=== PATIENT | male | born 1965 | race Hispanic/Latino ===

== ENCOUNTER 2023-01-30 16:08 | Inpatient (IN) | payer OTHER ==
[~2023-01-30] VITALS: Ht 165.1 cm; Wt 81.6 kg
[2023-01-30 17:15] VITALS: BP 126/82; PULSE 89; RESP 18
[2023-01-30] MEDS ORDERED: ACETAMINOPHEN 325 MG TAB PO PRN ×3 (17:30→21:30)
[2023-01-30] MEDS ORDERED: MAGNESIUM HYDROXIDE 30 ML/UDCUP PO PRN (17:30)
[2023-01-30] MEDS ORDERED: ACETAMINOPHEN WITH CODEINE 1 TAB TAB PO PRN (17:30)
[2023-01-30] MEDS ORDERED: MAG/ALUM/SIMETH 30 ML UDCUP PO PRN (17:30)
[2023-01-30] MEDS ORDERED: ATOR20TA65 PO (17:51)
[2023-01-30] MEDS ORDERED: METF-446 PO (17:51)
[2023-01-30] MEDS ORDERED: LISI5TAB21 PO (17:51)
[2023-01-30] MEDS ORDERED: HYDROMORPHONE PCA 10 MG/50 ML 50 ML IV PRN (18:00)
[2023-01-30 18:08] LABS: BASOPHILS # (AUTO) 0.01 K/uL (0.00-0.20); BASOPHILS % (AUTO) 0.1 % (0.0-5.0); EOSINOPHILS # (AUTO) 0.01 K/uL (0.00-0.70); EOSINOPHILS % (AUTO) 0.1 % (0.0-8.0); HEMATOCRIT 40.4 % (42-54); IMMATURE GRANULOCYTE ABSOLUTE 0.06 K/uL (0-1); LYMPHOCYTES # (AUTO) 0.7 K/uL (1.0-4.8); MEAN CORPUSCULAR HGB CONC 33.7 g/dL (32.0-36.0); MEAN CORPUSCULAR VOLUME 89.2 fL (79-99); MONOCYTES # (AUTO) 0.3 K/uL (0.1-1.0); MONOCYTES % (AUTO) 3.1 % (3.0-13.0); NEUTROPHILS # (AUTO) 8.8 K/uL (1.8-7.7); NEUTROPHILS % (AUTO) 89.1 % (40.0-77.0); PLATELET COUNT (AUTO) 168 K/uL (130-400); RED BLOOD CELL COUNT(AUTO) 4.53 MIL/uL (4.50-6.20); RED CELL DISTRIBUTION WIDTH 13.2 % (11.0-15.5); WHITE BLOOD COUNT (AUTO) 9.8 K/uL (4.8-10.8)
[2023-01-30 18:17] LABS: CREATININE 1.3 mg/dL (0.5-1.5); POTASSIUM 4.6 mmol/L (3.5-5.1)
[2023-01-30 18:23] LABS: INR < 0.93 (0.85-1.15); PROTHROMBIN TIME 9.8 SEC (9.6-11.6)
[2023-01-30 18:24] LABS: PARTIAL THROMBOPLASTIN TIME 25.5 SEC (26.3-35.5)
[2023-01-30] MEDS ORDERED: PHARMACY COMMUNICATION MISC SCH (18:30)
[2023-01-30 19:25] VITALS: O2SAT 98
[2023-01-30 20:15] VITALS: BP 127/84; PULSE 86; RESP 16
[2023-01-30] MEDS: INSULIN HUMULIN R 100 UNIT/ML 3ML SQ SCH (20:51)
[2023-01-30] MEDS: LACTATED RINGERS IV SCH (20:52)
[2023-01-30] MEDS: POTASSIUM CHLORIDE IV SCH (20:52)
[2023-01-30] MEDS: ATORVASTATIN 20 MG TABLET PO SCH (20:53)
[2023-01-30] MEDS ORDERED: NON-FORMULARY MEDICATION 1 EACH (Metformin HCl 1,000 MG) PO SCH (21:00)
[2023-01-30] MEDS ORDERED: HYDRALAZINE 20MG/ML VIAL IV PRN (21:30)
[2023-01-30] MEDS ORDERED: ONDANSETRON 4MG INJ IV PRN (21:30)
[2023-01-30] MEDS ORDERED: MAGNESIUM 2GM PREMIX 50ML 50 ML IV PRN (22:00)
[2023-01-30] MEDS ORDERED: POTASSIUM CHLORIDE 10% ELIXIR 20 MEQ/15 ML UDCUP PO PRN (22:00)
[2023-01-30] MEDS ORDERED: POTASSIUM CHLORIDE 20MEQ/100ML 100 ML IV PRN (22:00)
[2023-01-30] MEDS ORDERED: KCL 20 MEQ ERTAB PO PRN (22:00)
[2023-01-31] VITALS (7 sets, daily range): BP systolic 110–141; BP diastolic 68–98; PULSE 64–81; RESP 16–20; O2SAT 99
[2023-01-31 04:16] LABS: BASOPHILS # (AUTO) 0.01 K/uL (0.00-0.20); BASOPHILS % (AUTO) 0.1 % (0.0-5.0); EOSINOPHILS # (AUTO) 0.01 K/uL (0.00-0.70); EOSINOPHILS % (AUTO) 0.1 % (0.0-8.0); HEMATOCRIT 42.7 % (42-54); LYMPHOCYTES # (AUTO) 0.9 K/uL (1.0-4.8); LYMPHOCYTES % (AUTO) 11.2 % (21.0-51.0); MEAN CORPUSCULAR HEMOGLOBIN 29.7 pg (27.0-33.0); MEAN CORPUSCULAR HGB CONC 32.8 g/dL (32.0-36.0); MEAN CORPUSCULAR VOLUME 90.5 fL (79-99); MONOCYTES # (AUTO) 0.4 K/uL (0.1-1.0); MONOCYTES % (AUTO) 5.3 % (3.0-13.0); NEUTROPHILS # (AUTO) 6.4 K/uL (1.8-7.7); PLATELET COUNT (AUTO) 158 K/uL (130-400); RED BLOOD CELL COUNT(AUTO) 4.72 MIL/uL (4.50-6.20); RED CELL DISTRIBUTION WIDTH 13.2 % (11.0-15.5); WHITE BLOOD COUNT (AUTO) 7.9 K/uL (4.8-10.8)
[2023-01-31 04:31] LABS: INR < 0.93 (0.85-1.15)
[2023-01-31 04:33] LABS: HEMOGLOBIN A1C 8.9 % (4.0-6.0)
[2023-01-31 04:48] LABS: MAGNESIUM 1.8 mg/dL (1.80-2.40); POTASSIUM 5.1 mmol/L (3.5-5.1)
[2023-01-31 06:09] LABS: ADD UA MICROSCOPIC YES; APPEARANCE,URINE CLEAR (CLEAR); BILIRUBIN,URINE NEGATIVE (NEGATIVE); COLOR,URINE LIGHT-YELLOW (YELLOW); GLUCOSE, URINE (UA) >=1000 mg/dL (NEGATIVE); KETONES,URINE NEGATIVE (NEGATIVE); LEUKOCYTE ESTERASE ,URINE NEGATIVE Leu/uL (NEGATIVE); NITRATE,URINE NEGATIVE (NEGATIVE); OCCULT BLOOD,URINE NEGATIVE (NEGATIVE); PROTEIN,URINE NEGATIVE (NEGATIVE); UROBILINOGEN,URINE 0.2 mg/dL (0.2-1.0)
[2023-01-31 06:18] LABS: BACTERIA,URINE None Seen /HPF (None Seen); SQUAMOUS EPITHELIAL CELL,UR Rare /HPF (0-2); WBC,URINE 0-1 /HPF (0-1)
[2023-01-31] MEDS: INSULIN HUMULIN R 100 UNIT/ML 3ML SQ SCH ×4 (06:36→20:17)
[2023-01-31] MEDS: FAMOTIDINE 20MG TAB PO SCH ×2 (08:43→20:20)
[2023-01-31] MEDS: ACETAMINOPHEN WITH CODEINE 1 TAB TAB PO PRN ×2 (08:44→20:20)
[2023-01-31] MEDS: METFORMIN HCL 500 MG TABLET PO SCH ×2 (08:44→18:03)
[2023-01-31] MEDS: LISINOPRIL 5 MG TABLET PO SCH (08:44)
[2023-01-31] MEDS: LACTATED RINGERS IV SCH (19:00)
[2023-01-31] MEDS: POTASSIUM CHLORIDE IV SCH (19:00)
[2023-01-31] MEDS: ATORVASTATIN 20 MG TABLET PO SCH (20:20)
[2023-01-31] MEDS ORDERED: TEMAZEPAM 15 MG CAPSULE PO PRN (22:30)
[2023-02-01] VITALS (28 sets, daily range): BP systolic 107–148; BP diastolic 65–96; PULSE 72–106; RESP 15–20; O2SAT 98–99
[2023-02-01] MEDS: INSULIN HUMULIN R 100 UNIT/ML 3ML SQ SCH ×4 (05:10→20:52)
[2023-02-01] MEDS ORDERED: MIDAZOLAM HCL 1 MG/ML 2ML VIAL ONE (07:06)
[2023-02-01] MEDS ORDERED: FENTANYL CITRATE PF 50 MCG/1 ML 2ML VIAL ONE (07:06)
[2023-02-01] MEDS ORDERED: ONDANSETRON 4MG INJ ONE (07:07)
[2023-02-01] MEDS ORDERED: PROPOFOL 10 MG/ML 20ML VIAL IV ONE (07:25)
[2023-02-01] MEDS ORDERED: 0.9%NACL 1000ML 1,000 ML IV ONE (07:57)
[2023-02-01] MEDS: FAMOTIDINE 20MG TAB PO SCH ×2 (10:11→20:56)
[2023-02-01] MEDS: LISINOPRIL 5 MG TABLET PO SCH (10:11)
[2023-02-01] MEDS: METFORMIN HCL 500 MG TABLET PO SCH ×2 (10:12→16:52)
[2023-02-01] MEDS: LACTATED RINGERS IV SCH (20:53)
[2023-02-01] MEDS: POTASSIUM CHLORIDE IV SCH (20:53)
[2023-02-01] MEDS: ATORVASTATIN 20 MG TABLET PO SCH (20:56)
[2023-02-02] VITALS (7 sets, daily range): BP systolic 92–131; BP diastolic 62–85; PULSE 82–96; RESP 16–19; O2SAT 95–99
[2023-02-02 05:08] LABS: BASOPHILS # (AUTO) 0.03 K/uL (0.00-0.20); BASOPHILS % (AUTO) 0.4 % (0.0-5.0); EOSINOPHILS # (AUTO) 0.04 K/uL (0.00-0.70); EOSINOPHILS % (AUTO) 0.5 % (0.0-8.0); HEMATOCRIT 45.4 % (42-54); IMMATURE GRANULOCYTE ABSOLUTE 0.06 K/uL (0-1); LYMPHOCYTES # (AUTO) 1.2 K/uL (1.0-4.8); LYMPHOCYTES % (AUTO) 15.8 % (21.0-51.0); MEAN CORPUSCULAR HEMOGLOBIN 29.3 pg (27.0-33.0); MEAN CORPUSCULAR VOLUME 88.7 fL (79-99); MONOCYTES # (AUTO) 0.5 K/uL (0.1-1.0); MONOCYTES % (AUTO) 5.9 % (3.0-13.0); NEUTROPHILS % (AUTO) 76.6 % (40.0-77.0); PLATELET COUNT (AUTO) 146 K/uL (130-400); RED BLOOD CELL COUNT(AUTO) 5.12 MIL/uL (4.50-6.20); RED CELL DISTRIBUTION WIDTH 13.7 % (11.0-15.5); WHITE BLOOD COUNT (AUTO) 7.8 K/uL (4.8-10.8)
[2023-02-02 05:15] LABS: CREATININE 1.3 mg/dL (0.5-1.5); POTASSIUM 4.7 mmol/L (3.5-5.1)
[2023-02-02] MEDS: INSULIN HUMULIN R 100 UNIT/ML 3ML SQ SCH ×4 (06:56→19:34)
[2023-02-02] MEDS: FAMOTIDINE 20MG TAB PO SCH ×2 (08:09→19:34)
[2023-02-02] MEDS: METFORMIN HCL 500 MG TABLET PO SCH ×2 (08:09→16:16)
[2023-02-02] MEDS: LISINOPRIL 5 MG TABLET PO SCH (08:09)
[2023-02-02] MEDS: ACETAMINOPHEN WITH CODEINE 1 TAB TAB PO PRN (08:21)
[2023-02-02] MEDS: POTASSIUM CHLORIDE IV SCH (18:39)
[2023-02-02] MEDS: LACTATED RINGERS IV SCH (18:39)
[2023-02-02] MEDS: ATORVASTATIN 20 MG TABLET PO SCH (19:34)
[2023-02-03 01:00] VITALS: BP 109/77; PULSE 80; RESP 18
[2023-02-03 03:32] LABS: BASOPHILS # (AUTO) 0.02 K/uL (0.00-0.20); BASOPHILS % (AUTO) 0.3 % (0.0-5.0); EOSINOPHILS # (AUTO) 0.07 K/uL (0.00-0.70); EOSINOPHILS % (AUTO) 1.1 % (0.0-8.0); IMMATURE GRANULOCYTE ABSOLUTE 0.04 K/uL (0-1); LYMPHOCYTES % (AUTO) 15.3 % (21.0-51.0); MEAN CORPUSCULAR HEMOGLOBIN 29.9 pg (27.0-33.0); MEAN CORPUSCULAR HGB CONC 34.3 g/dL (32.0-36.0); MEAN CORPUSCULAR VOLUME 87.3 fL (79-99); MONOCYTES # (AUTO) 0.4 K/uL (0.1-1.0); MONOCYTES % (AUTO) 5.9 % (3.0-13.0); NEUTROPHILS # (AUTO) 4.8 K/uL (1.8-7.7); NEUTROPHILS % (AUTO) 76.8 % (40.0-77.0); PLATELET COUNT (AUTO) 125 K/uL (130-400); RED BLOOD CELL COUNT(AUTO) 4.81 MIL/uL (4.50-6.20); RED CELL DISTRIBUTION WIDTH 13.2 % (11.0-15.5); WHITE BLOOD COUNT (AUTO) 6.3 K/uL (4.8-10.8)
[2023-02-03 03:41] LABS: CREATININE 1.3 mg/dL (0.5-1.5); POTASSIUM 4.8 mmol/L (3.5-5.1)
[2023-02-03 04:52] VITALS: BP 120/78; PULSE 86; RESP 19
[2023-02-03] MEDS: INSULIN HUMULIN R 100 UNIT/ML 3ML SQ SCH ×2 (05:42→11:30)
[2023-02-03 07:00] VITALS: BP 119/74; PULSE 95; RESP 16
[2023-02-03] MEDS: FAMOTIDINE 20MG TAB PO SCH (07:57)
[2023-02-03] MEDS: LISINOPRIL 5 MG TABLET PO SCH (07:57)
[2023-02-03] MEDS: METFORMIN HCL 500 MG TABLET PO SCH (07:57)
[2023-02-03 11:50] VITALS: BP 113/69; PULSE 84; RESP 18
== END 2023-02-03 12:30 | disposition home health service (06) | DRG 563 ==
LOC: EDH 16:08 → DIRECT 16:09 → 4CH 17:15
PROVIDERS: ADMIT Orthopaedic Surgery; ATTEND Orthopaedic Surgery
PROC: 0SSDXZZ Reposition Left Knee Joint, External Approach (ICD-10-PCS; principal; 2023-02-01 07:00)
DX: M23.8X2 Other internal derangements of left knee (principal); T84.84XA Pain due to internal orthopedic prosthetic devices, implants and grafts, initial encounter; E11.9 Type 2 diabetes mellitus without complications; I10 Essential (primary) hypertension; E78.5 Hyperlipidemia, unspecified; Y79.2 Prosthetic and other implants, materials and accessory orthopedic devices associated with adverse incidents; Z85.528 Personal history of other malignant neoplasm of kidney; Z90.5 Acquired absence of kidney; Y92.89 Other specified places as the place of occurrence of the external cause; Z79.84 Long term (current) use of oral hypoglycemic drugs
CPT/HCPCS: 36415; 71045; 73560; 80048; 81001; 82948; 83036; 83735; 84100; 85025; 85610; 85730; 86850; 86900; 86901; 93005; G0378; J1170; J1815; J2250; J2405; J2704; J3010; J3475; J3480; J7030; J7120; A4215; A4221; A4222; A4223; A4510; A4663; A5120; J3490